=== PATIENT | male | born 1960 | race Caucasian/White ===

== ENCOUNTER 2020-03-22 09:31 | Inpatient (IN) | payer BC ==
[2020-03-22 11:07] VITALS: BMI 31.4
[2020-03-22] MEDS ORDERED: ACETAMINOPHEN 325 MG TABLET (FP) PO PRN ×2 (11:24)
[2020-03-22] MEDS ORDERED: IBUPROFEN 400 MG TABLET (FP) PO PRN (11:24)
[2020-03-22] MEDS ORDERED: MENTHOL/PHENOL 1 EACH UD MM PRN (11:24)
[2020-03-22] MEDS ORDERED: MAG HYDROX/AL HYDROX/SIMETH 30 ML UNIT-DOSE CUP PO PRN (11:24)
[2020-03-22] MEDS ORDERED: ONDANSETRON *ODT* 4 MG TABLET SL PRN (11:24)
[2020-03-22] MEDS ORDERED: MAGNESIUM CITRATE 300 ML BOTTLE PO PRN (11:24)
[2020-03-22] MEDS ORDERED: chlordiazePOXIDE HCL 25 MG CAPSULE PO PRN (11:24)
[2020-03-22] MEDS ORDERED: BISMUTH SUBSALICYLATE 262 MG/15 ML BTL PO PRN (11:24)
[2020-03-22] MEDS ORDERED: MAGNESIUM HYDROX 2400MG/30ML ORAL SUSPENSION 30 ML CUP PO PRN (11:24)
[2020-03-22] MEDS ORDERED: METHOCARBAMOL 500 MG TABLET PO PRN (11:24)
[2020-03-22] MEDS: NICOTINE 14 MG/24 HOURS TOPICAL PATCH TD SCH (12:09)
[2020-03-22] MEDS: hydrOXYzine PAMOATE 25 MG CAPSULE (FP) PO SCH ×3 (13:20→22:18)
[2020-03-22 13:50] LABS: HEMATOCRIT 45.7 % (35.4-49); HEMOGLOBIN 15.8 GM/dL (11.7-16.9); MCH 31.2 pg (25.7-33.7); MCHC 34.6 g/dl (32.0-35.9); PLATELET COUNT 270 K/MM3 (134-434); RBC 5.08 M/mm3 (4.00-5.60); RDW 13.8 % (11.9-15.9); WHITE BLOOD COUNT 10.2 K/mm3 (4.0-10.0)
[2020-03-22 13:52] LABS: POTASSIUM 4.1 mmol/L (3.5-5.1)
[2020-03-22 13:59] LABS: ALBUMIN 4.1 g/dl (3.4-5.0); BLOOD UREA NITROGEN 10.9 mg/dL (7-18); CALCIUM 9.2 mg/dL (8.5-10.1)
[2020-03-22 14:03] LABS: CREATININE 0.9 mg/dL (0.55-1.3)
[2020-03-22 14:05] LABS: BILIRUBIN,TOTAL 0.8 mg/dL (0.2-1); TOT PROT 7.7 g/dl (6.4-8.2)
[2020-03-22] MEDS: chlordiazePOXIDE HCL 25 MG CAPSULE PO SCH ×2 (17:35→22:18)
[2020-03-22] MEDS: NICOTINE POLACRILEX 2 MG GUM BUC PRN ×2 (17:50→20:31)
[2020-03-22] MEDS: THIAMINE HCL 100 MG TABLET (FP) PO SCH (22:18)
[2020-03-22] MEDS: MELATONIN 5 MG TABLETS PO SCH (22:18)
[2020-03-23] MEDS: hydrOXYzine PAMOATE 25 MG CAPSULE (FP) PO SCH ×5 (05:48→22:23)
[2020-03-23] MEDS: chlordiazePOXIDE HCL 25 MG CAPSULE PO SCH ×4 (05:49→22:24)
[2020-03-23] MEDS: PRENATAL VITAMINS W/ FOLIC ACID TABLET (FP) PO SCH (10:05)
[2020-03-23] MEDS: NICOTINE 14 MG/24 HOURS TOPICAL PATCH TD SCH (10:05)
[2020-03-23] MEDS: NICOTINE POLACRILEX 2 MG GUM BUC PRN ×2 (15:18→20:32)
[2020-03-23] MEDS: THIAMINE HCL 100 MG TABLET (FP) PO SCH (22:23)
[2020-03-23] MEDS: MELATONIN 5 MG TABLETS PO SCH (22:24)
[2020-03-24] MEDS: chlordiazePOXIDE HCL 25 MG CAPSULE PO SCH ×4 (05:52→22:11)
[2020-03-24] MEDS: hydrOXYzine PAMOATE 25 MG CAPSULE (FP) PO SCH ×5 (05:52→22:08)
[2020-03-24] MEDS: NICOTINE 14 MG/24 HOURS TOPICAL PATCH TD SCH (10:46)
[2020-03-24] MEDS: PRENATAL VITAMINS W/ FOLIC ACID TABLET (FP) PO SCH (10:47)
[2020-03-24 11:10] LABS: HEMATOCRIT 39.1 % (35.4-49); HEMOGLOBIN 13.7 GM/dL (11.7-16.9); MCH 31.4 pg (25.7-33.7); MCHC 35.1 g/dl (32.0-35.9); MEAN CELL VOLUME 89.5 fl (80-96); MEAN PLT VOLUME 8.8 fl (7.5-11.1); PLATELET COUNT 220 K/MM3 (134-434); RBC 4.37 M/mm3 (4.00-5.60); RDW 13.4 % (11.9-15.9); WHITE BLOOD COUNT 6.2 K/mm3 (4.0-10.0)
[2020-03-24] MEDS: NICOTINE POLACRILEX 2 MG GUM BUC PRN (15:18)
[2020-03-24] MEDS: MELATONIN 5 MG TABLETS PO SCH (22:08)
[2020-03-24] MEDS: THIAMINE HCL 100 MG TABLET (FP) PO SCH (22:09)
[2020-03-25] MEDS ORDERED: chlordiazePOXIDE HCL 10 MG CAPSULE PO PRN
[2020-03-25] MEDS: hydrOXYzine PAMOATE 25 MG CAPSULE (FP) PO SCH ×5 (05:57→22:15)
[2020-03-25] MEDS: chlordiazePOXIDE HCL 10 MG CAPSULE PO SCH ×4 (05:58→22:15)
[2020-03-25] MEDS: NICOTINE 14 MG/24 HOURS TOPICAL PATCH TD SCH (10:14)
[2020-03-25] MEDS: PRENATAL VITAMINS W/ FOLIC ACID TABLET (FP) PO SCH (10:14)
[2020-03-25] MEDS: NICOTINE POLACRILEX 2 MG GUM BUC PRN ×2 (12:17→17:29)
[2020-03-25] MEDS: THIAMINE HCL 100 MG TABLET (FP) PO SCH (22:15)
[2020-03-25] MEDS: MELATONIN 5 MG TABLETS PO SCH (22:15)
[2020-03-26] MEDS: chlordiazePOXIDE HCL 10 MG CAPSULE PO SCH ×2 (05:51→17:42)
[2020-03-26] MEDS: hydrOXYzine PAMOATE 25 MG CAPSULE (FP) PO SCH ×5 (05:51→22:21)
[2020-03-26] MEDS: PRENATAL VITAMINS W/ FOLIC ACID TABLET (FP) PO SCH (10:11)
[2020-03-26] MEDS: NICOTINE 14 MG/24 HOURS TOPICAL PATCH TD SCH (10:11)
[2020-03-26] MEDS: NICOTINE POLACRILEX 2 MG GUM BUC PRN ×2 (12:39→18:55)
[2020-03-26] MEDS: THIAMINE HCL 100 MG TABLET (FP) PO SCH (22:21)
[2020-03-26] MEDS: MELATONIN 5 MG TABLETS PO SCH (22:21)
[2020-03-27] MEDS ORDERED: chlordiazePOXIDE HCL 10 MG CAPSULE PO ONE (05:00)
[2020-03-27] MEDS: hydrOXYzine PAMOATE 25 MG CAPSULE (FP) PO SCH (06:00)
[2020-03-27 06:44] VITALS: BP 112/64; PULSE 57; TEMP 98.3
== END 2020-03-27 09:46 | disposition home or self-care (01) | DRG 897 ==
LOC: YASAS 09:31 → Y6N 11:14
PROVIDERS: ADMIT Allergy & Immunology; ATTEND Allergy & Immunology
PROC: HZ2ZZZZ Detoxification Services for Substance Abuse Treatment (ICD-10-PCS; principal; 2020-03-22)
DX: F10.230 Alcohol dependence with withdrawal, uncomplicated (principal); F14.20 Cocaine dependence, uncomplicated; F19.280 Other psychoactive substance dependence with psychoactive substance-induced anxiety disorder; F11.10 Opioid abuse, uncomplicated; F12.20 Cannabis dependence, uncomplicated; F17.220 Nicotine dependence, chewing tobacco, uncomplicated; F19.24 Other psychoactive substance dependence with psychoactive substance-induced mood disorder; I10 Essential (primary) hypertension; N40.0 Benign prostatic hyperplasia without lower urinary tract symptoms; Z98.890 Other specified postprocedural states
CPT/HCPCS: 36415; 80053; 85027; 86780; 93005; 93010; C9803; U0003